=== PATIENT | female | born 1975 | race African-American/Black ===

== ENCOUNTER 2019-07-20 16:25 | Emergency (ER) | payer SELFPAY ==
[2019-07-20 16:37] VITALS: BMI 29.0
--- NOTE | 2019-07-20 16:38 | PDOC ---
Rapid Medical Evaluation Chief Complaint: Pain Time Seen by Provider: 07/20/19 16:33 Medical Evaluation: 07/20/19 16:37 Patient presents to ED with complaints of:llq cramping now radiating to back, states had frequent urge to defecate but denies diarrhea or constipation patient on brief exam: vss, no cva tenderness mild llq /left suprapubic tenderness Patient ordered for: labs, urine Patient to proceed to the ED Discharge Disposition - Diagnosis Abdominal pain, Right ovarian cyst, Fibroid uterus - Discharge Dispostion Disposition: HOME Condition at time of disposition: Stable - Referrals Referrals: Karla Kurtz MD [Staff Physician] - Luzma Andrade MD [Staff Physician] - Rhys Khan MD [Staff Physician] - Perry Steel MD [Staff Physician] - Alton Kovacs MD [Staff Physician] - - Patient Instructions Printed Discharge Instructions: DI for Uterine Fibroids, DI for Ovarian Cyst Additional Instructions: Please take ibuprofen as needed for pain as discussed. Please call the SCREEN PRINTER HELPER office first thing in the morning to arrange follow-up. Please return to the ED if you develop acute worsening pain the Right lower pelvis. Please call your PMD to arrange follow up. Please return to the ED with any further concerns or complaints. - Post Discharge Activity Work/School Note: Back to Work
[2019-07-20 17:10] LABS: BASO % 0.6 % (0-2.0); EOS % 1.3 % (0-4.5); HEMATOCRIT 34.3 % (32.4-45.2); HEMOGLOBIN 11.1 GM/dL (10.7-15.3); LYMPH % 33.8 % (8-40); MCH 29.2 pg (25.7-33.7); MCHC 32.3 g/dl (32.0-36.0); MEAN CELL VOLUME 90.4 fl (80-96); MONO % 8.4 % (3.8-10.2); NEUT % 55.9 % (42.8-82.8); PLATELET COUNT 288 K/MM3 (134-434); RBC 3.79 M/mm3 (3.60-5.2); RDW 14.6 % (11.6-15.6); WHITE BLOOD COUNT 7.9 K/mm3 (4.0-10.0)
[2019-07-20 17:25] LABS: EPI CELLS 1.8 /HPF (0-5/HPF); HYALINE CASTS 2 /lpf (0-8); URINE APPEARANCE CLEAR; URINE BACTERIA 16.8 /hpf (NEGATIVE); URINE BILIRUBIN NEGATIVE (NEGATIVE); URINE COLOR YELLOW; URINE GLUCOSE (UA) NEGATIVE (NEGATIVE); URINE KETONE NEGATIVE (NEGATIVE); URINE LEUK ESTERASE NEGATIVE (NEGATIVE); URINE NITRITE NEGATIVE (NEGATIVE); URINE PROTEIN NEGATIVE (NEGATIVE); URINE UROBILINOGEN 0.2 mg/dL (0.2-1.0); URINE WBC 0 /hpf (0-5)
[2019-07-20 17:33] LABS: ALBUMIN 3.6 g/dl (3.4-5.0); BILIRUBIN,TOTAL 0.2 mg/dL (0.2-1); BLOOD UREA NITROGEN 10.2 mg/dL (7-18); CALCIUM 8.9 mg/dL (8.5-10.1); TOT PROT 7.4 g/dl (6.4-8.2)
[2019-07-20 17:48] LABS: URINE RBC 8.2 /hpf (0-4)
[2019-07-20 17:49] LABS: YEAST NONE SEEN (NEGATIVE)
--- NOTE | 2019-07-20 18:01 | PDOC ---
History of Present Illness - General Chief Complaint: Pain Stated Complaint: ABD PAIN Time Seen by Provider: 07/20/19 16:33 History Source: Patient Exam Limitations: No Limitations - History of Present Illness Initial Comments: 44 year old female with PMH ovarian cyst (s/p removal) presented to ED for suprapubic pain x3 days, now radiating around to her right flank/back today. Pt denied nausea, vomiting, diarrhea, fever, vaginal bleeding, vaginal discharge, lightheadedness, chest pain, shortness of breath. Pt reported her symptoms are worsening. Pt reported pain is constant, cramping, no alleviating or aggravating factors, radiating around right ted/back. Social history: denied hx of STD, denied sexual activity (x2 years) Surgical history: removal of L ovarian cyst OBGYN: pt does not remember name, "Someone on [address]" ROS General: denied fever, chills, generalized weakness, body aches. HEENT: denied sore throat, rhinorrhea, ear pain. Cardiovascular: denied chest pain, palpitations, syncope, diaphoresis. Respiratory: denied shortness of breath, cough, sputum production, hemoptysis. Gastrointestinal: denied abdominal pain, nausea, vomiting, diarrhea, constipation, blood in stool. Genitourinary: denied vaginal bleeding, vaginal discharge, dysuria, increased urinary frequency, hematuria, urinary incontinence, flank pain. Back: admitted to back pain. Musculoskeletal: denied joint pain, muscle pain, joint swelling. Neurological: denied headache, dizziness, numbness, tingling, weakness. Integumentary: denied rash, laceration, abrasion. Hematologic/Lymphatic: denied bruising or bleeding. PE Constitutional: Well-nourished, Well-developed, appearing stated age. HEENT: head is normocephalic, atraumatic. EOMI. PERRLA. no facial edema. Neck: supple. Full ROM. Cardiovascular: regular heart rhythm. no murmurs. no pericardial friction rub. Respiratory: bibasilar fine crackles. no wheezing. no stridor. no labored breathing. speaking full sentences. Gastrointestinal: soft, nontender. mcburney nontender. rovsing negative. psoas negative. obturator negative. normal bowel sounds. no rebound, guarding, masses. Extremities: peripheral pulses intact. no lower extremity edema. Neurological: CN 2-12 grossly intact. 5/5 strength all extremities. Full sensation throughout. no ataxia. Psych: awake, alert, oriented to person and place. follows commands. answers questions appropriately. Pelvic: normal external genitalia. no CMT. green/yellow discharge noted. no adnexal tenderness bilaterally. Past History - Past Medical History Allergies/Adverse Reactions: Allergies Allergy/AdvReac Type Severity Reaction Status Date / Time Penicillins Allergy Verified 07/20/19 16:37 Home Medications: Ambulatory Orders NK [No Known Home Medication] 07/20/19 COPD: No - Suicide/Smoking/Psychosocial Hx Smoking History: Never smoked Information on smoking cessation initiated: No Hx Alcohol Use: No Drug/Substance Use Hx: No *Physical Exam - Vital Signs Last Vital Signs Temp Pulse Resp BP Pulse Ox 98.1 F 63 19 133/88 100 07/20/19 16:34 07/20/19 16:34 07/20/19 16:34 07/20/19 16:34 07/20/19 16:34 ED Treatment Course - LABORATORY CBC & Chemistry Diagram: 07/20/19 16:48 07/20/19 16:48 - ADDITIONAL ORDERS Additional order review: Laboratory Results 07/20/19 07/20/19 07/20/19 16:48 16:48 16:48 Sodium 140 Potassium 4.0 Chloride 108 H Carbon Dioxide 27 Anion Gap 6 L BUN 10.2 Creatinine 1.0 Est GFR (CKD-EPI)AfAm 78.79 Est GFR (CKD-EPI)NonAf 67.98 Random Glucose 79 Calcium 8.9 Total Bilirubin 0.2 AST 14 L ALT 17 Alkaline Phosphatase 63 Total Protein 7.4 Albumin 3.6 Urine Color Yellow Urine Appearance Clear Urine pH 8.0 Ur Specific Mobile 1.015 Urine Protein Negative Urine Glucose (UA) Negative Urine Ketones Negative Urine Blood 1+ H Urine Nitrite Negative Urine Bilirubin Negative Urine Urobilinogen 0.2 Ur Leukocyte Esterase Negative Urine WBC (Auto) 0 Urine RBC (Auto) 8.2 Urine Casts (Auto) 2 U Epithel Cells (Auto) 1.8 Urine Bacteria (Auto) 16.8 Urine Yeast (Auto) None seen Urine HCG, Qual Negative 07/20/19 16:48 RBC 3.79 MCV 90.4 MCHC 32.3 RDW 14.6 MPV 8.0 Neutrophils % 55.9 Lymphocytes % 33.8 Monocytes % 8.4 Eosinophils % 1.3 Basophils % 0.6 - RADIOLOGY Radiology Studies Ordered: Category Date Time Status TRANSVAGINAL ULTRASOUND US [US] Stat Ultrasound 07/20/19 17:59 Ordered Medical Decision Making - Medical Decision Making 44 year old female with above PMH presented to ED for suprapubic pain x3 days, now radiating to her right flank/back. Initial Vital Signs Temp Pulse Resp BP Pulse Ox 98.1 F 63 19 133/88 100 07/20/19 16:34 07/20/19 16:34 07/20/19 16:34 07/20/19 16:34 07/20/19 16:34 Afebrile. No tachycardia. No tachypnea. Mild hypertension. No hypoxia on room air. CBC WBC 7.9 K/mm3 (4.0-10.0) 07/20/19 16:48 RBC 3.79 M/mm3 (3.60-5.2) 07/20/19 16:48 Hgb 11.1 GM/dL (10.7-15.3) 07/20/19 16:48 Hct 34.3 % (32.4-45.2) 07/20/19 16:48 MCV 90.4 fl (80-96) 07/20/19 16:48 MCH 29.2 pg (25.7-33.7) 07/20/19 16:48 MCHC 32.3 g/dl (32.0-36.0) 07/20/19 16:48 RDW 14.6 % (11.6-15.6) 07/20/19 16:48 Plt Count 288 K/MM3 (134-434) 07/20/19 16:48 MPV 8.0 fl (7.5-11.1) 07/20/19 16:48 Absolute Neuts (auto) 4.4 K/mm3 (1.5-8.0) 07/20/19 16:48 Neutrophils % 55.9 % (42.8-82.8) 07/20/19 16:48 Lymphocytes % 33.8 % (8-40) 07/20/19 16:48 Monocytes % 8.4 % (3.8-10.2) 07/20/19 16:48 Eosinophils % 1.3 % (0-4.5) 07/20/19 16:48 Basophils % 0.6 % (0-2.0) 07/20/19 16:48 Nucleated RBC % 0 % (0-0) 07/20/19 16:48 No leukocytosis. No anemia. CMP Sodium 140 mmol/L (136-145) 07/20/19 16:48 Potassium 4.0 mmol/L (3.5-5.1) 07/20/19 16:48 Chloride 108 mmol/L (98-107) H 07/20/19 16:48 Carbon Dioxide 27 mmol/L (21-32) 07/20/19 16:48 Anion Gap 6 MMOL/L (8-16) L 07/20/19 16:48 BUN 10.2 mg/dL (7-18) 07/20/19 16:48 Creatinine 1.0 mg/dL (0.55-1.3) 07/20/19 16:48 Est GFR (CKD-EPI)AfAm 78.79 07/20/19 16:48 Est GFR (CKD-EPI)NonAf 67.98 07/20/19 16:48 Random Glucose 79 mg/dL (74-106) 07/20/19 16:48 Calcium 8.9 mg/dL (8.5-10.1) 07/20/19 16:48 Total Bilirubin 0.2 mg/dL (0.2-1) 07/20/19 16:48 AST 14 U/L (15-37) L 07/20/19 16:48 ALT 17 U/L (13-61) 07/20/19 16:48 Alkaline Phosphatase 63 U/L (45-117) 07/20/19 16:48 Total Protein 7.4 g/dl (6.4-8.2) 07/20/19 16:48 Albumin 3.6 g/dl (3.4-5.0) 07/20/19 16:48 No electrolyte abnormalities. No NATALY. No transaminitis. Urine Test Results Urine Color Yellow 07/20/19 16:48 Urine Appearance Clear 07/20/19 16:48 Urine pH 8.0 (5.0-8.0) 07/20/19 16:48 Ur Specific Mobile 1.015 (1.010-1.035) 07/20/19 16:48 Urine Protein Negative (NEGATIVE) 07/20/19 16:48 Urine Glucose (UA) Negative (NEGATIVE) 07/20/19 16:48 Urine Ketones Negative (NEGATIVE) 07/20/19 16:48 Urine Blood 1+ (NEGATIVE) H 07/20/19 16:48 Urine Nitrite Negative (NEGATIVE) 07/20/19 16:48 Urine Bilirubin Negative (NEGATIVE) 07/20/19 16:48 Ur Leukocyte Esterase Negative (NEGATIVE) 07/20/19 16:48 Negative for UTI. Positive for hematuria. GC/Chlamydia cervical swab sent. Pt declined prophylactic treatment - reported last sexually active x2 years ago , but reported has not been tested since abstinence. 07/20/19 19:01 Dr. Rush will assume care. Pending [facility] report. 07/21/19 17:01 Follow up: [facility] report: Name: [facility] DEPARTMENT OF RADIOLOGY Phys: Taylor Turner RESIDENT : 1975 Age: 44 Sex: F [facility] Acct: [id number] Loc: [address] Exam Date: 07/20/19 Status: ENEIDA Guzman [id number] Unit Number: [id number] EXAM#: TYPE/EXAM: RESULT: [id number] US/TRANSVAGINAL ULTRASOUND US HISTORY PROVIDED: Suprapubic. Real time examination of the pelvis utilizing the transvaginal probe demonstrates the following: The uterus is normal in size measuring 9.8 x 6.0 x 4.9 cm. There is a solid uterine mass consistent with a leiomyoma. This fibroid measures 3.5 x 3.4 x 3.1 cm. A normal appearing endometrium of 8 mm thickness is identified. There is a complex cyst within the right ovary measuring 6.4 x 6.0 x 4.7 cm. This cyst is most probably hemorrhagic in nature. Arterial and venous flow is documented to the ovary. The left ovary could not be identified. There is no evidence of adnexal masses or free pelvic fluid collections. IMPRESSION: Fibroid uterus and complex right ovarian cyst. Reported By: Christopher Rudolph MD 07/20/191942 *DC/Admit/Observation/Transfer Diagnosis at time of Disposition: Abdominal pain, Right ovarian cyst, Fibroid uterus - Discharge Dispostion Disposition: HOME Condition at time of disposition: Stable - Referrals Referrals: Karla Kurtz MD [Staff Physician] - Luzma Andrade MD [Staff Physician] - Rhys Khan MD [Staff Physician] - Perry Steel MD [Staff Physician] - Alton Kovacs MD [Staff Physician] - - Patient Instructions Printed Discharge Instructions: DI for Uterine Fibroids, DI for Ovarian Cyst Additional Instructions: Please take ibuprofen as needed for pain as discussed. Please call the SUBSCRIPTION CLERK office first thing in the morning to arrange follow-up. Please return to the ED if you develop acute worsening pain the Right lower pelvis. Please call your PMD to arrange follow up. Please return to the ED with any further concerns or complaints. - Post Discharge Activity Forms/Work/School Notes: Back to Work
[2019-07-20] MEDS ORDERED: IBUPROFEN 600 MG TABLET (FP) PO ONE ×2 (18:24→18:31)
--- NOTE | 2019-07-20 18:24 | PDOC ---
Documentation entered by Gerald Roland SCRIBE, acting as scribe for Anais Rush DO. Anais Rush DO: This documentation has been prepared by the Luan russell Daniel, SCRIBE, under my direction and personally reviewed by me in its entirety. I confirm that the documentation accurately reflects all work, treatment, procedures, and medical decision making performed by me. Attending Attestation - Resident Resident Name: Taylor Turner - ED Attending Attestation I have performed the following: I have examined & evaluated the patient, The case was reviewed & discussed with the resident, I agree w/resident's findings & plan, Exceptions are as noted - HPI HPI: 07/20/19 18:14 The patient is a 44 year old female with a past medical history of ovarian cyst s/p removal here today for evaluation of suprapubic pain. The patient reports that she has had 3 days of suprapubic pain which is now radiating to her right flank and back. She describes her pain as crampy. Patient denies headache, lightheadedness. Denies fever, chills. Denies chest pain, shortness of breath. Denies nausea, vomiting, diarrhea. Denies any vaginal bleeding or discharge. Allergies: penicillins - Physicial Exam PE: 07/20/19 18:17 Constitutional: Awake, alert, oriented. No acute distress. Head: Normocephalic. Atraumatic Eyes: PERRL. EOMI. Conjunctivae are not pale. ENT: Mucous membranes are moist and intact. Posterior pharynx without exudates or erythema. Uvula midline. Neck: Supple. Full ROM. No lymphadenopathy. Cardiovascular: Regular rate. Regular rhythm. S1, S2 regular. Distal pulses are 2+ and symmetric. Pulmonary/Chest: No evidence of respiratory distress. Clear to auscultation bilaterally No wheezing, rales or rhonchi. Abdominal: +mild tenderness of right mcburney's point. Soft and non-distended. No rebound, guarding or rigidity. No organomegaly. No palpable masses. Good bowel sounds. Back: No CVA tenderness. Musculoskeletal: No edema. No cyanosis. No clubbing. Full range of motion in all extremities. No calf tenderness. Radial/pedal pulses are intact and 2+ bilaterally Skin: Skin is warm and dry. No petechiae. No purpura. Neurological: Alert and oriented to person, place, and time. Cranial nerves II -XII are grossly intact. Normal speech. Strength is grossly symmetric. No sensory deficits. Psychiatric: Good eye contact. Normal interaction, affect and behavior. - Medical Decision Making 07/20/19 18:22 I, Dr. Anais Rush, DO, attest that this document has been prepared under my direction and personally reviewed by me in its entirety. I further attest, that it accurately reflects all work, treatment, procedures and medical decision -making performed by me. 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 at [facility] pending official ultrasound read 07/20/19 19:50 fibroid uterus and flow to the ovary 07/20/19 20:09 discussed ultrasound images and report in detail answered all questions pt requesting work note to see dermatologist and dermatopathologist tomorrow pt requesting other referrals to see dermatologist and dermatopathologist closer to the area vs [facility] landscape account manager *DC/Admit/Observation/Transfer Diagnosis at time of Disposition: Abdominal pain, Right ovarian cyst, Fibroid uterus - Discharge Dispostion Disposition: HOME Condition at time of disposition: Stable Decision to Admit order: No - Referrals Referrals: Luzma Andrade MD [Staff Physician] - Rhys Khan MD [Staff Physician] - Karla Kurtz MD [Staff Physician] - Perry Steel MD [Staff Physician] - Alton Kovacs MD [Staff Physician] - - Patient Instructions Printed Discharge Instructions: DI for Ovarian Cyst, DI for Uterine Fibroids Additional Instructions: Please take ibuprofen as needed for pain as discussed. Please call the WET PROCESS MILLER HEAD ASSISTANT office first thing in the morning to arrange follow-up. Please return to the ED if you develop acute worsening pain the Right lower pelvis. Please call your PMD to arrange follow up. Please return to the ED with any further concerns or complaints. - Post Discharge Activity Forms/Work/School Notes: Back to Work
[2019-07-20 20:14] VITALS: BP 136/78; PULSE 68; TEMP 98.2
== END 2019-07-20 20:28 | disposition home or self-care (01) ==
LOC: JER 16:25
DX: N83.201 Unspecified ovarian cyst, right side (principal); D25.9 Leiomyoma of uterus, unspecified
CPT/HCPCS: 36415; 76830-TC; 80053; 81003; 84703; 85025; 87086; 87491; 87591; 99282-25

== ENCOUNTER 2019-07-26 16:45 | Emergency (ER) | payer SELFPAY ==
--- NOTE | 2019-07-26 16:47 | PDOC ---
Rapid Medical Evaluation Chief Complaint: Vaginal Bleeding Time Seen by Provider: 07/26/19 16:46 Medical Evaluation: Allergies Allergy/AdvReac Type Severity Reaction Status Date / Time Penicillins Allergy Verified 07/20/19 16:37 07/26/19 16:46 HPI: Lower abdominal pain and vaginal bleeding x1 week PE: No gross deficits ORDERS: Labs Discharge Disposition - Diagnosis Vaginal bleeding - Referrals - Patient Instructions - Post Discharge Activity
[2019-07-26 16:49] VITALS: BMI 28.1
[2019-07-26 17:33] LABS: BASO % 0.9 % (0-2.0); EOS % 1.2 % (0-4.5); HEMATOCRIT 33.9 % (32.4-45.2); HEMOGLOBIN 11.1 GM/dL (10.7-15.3); LYMPH % 24.9 % (8-40); MCH 29.7 pg (25.7-33.7); MCHC 32.9 g/dl (32.0-36.0); MEAN CELL VOLUME 90.4 fl (80-96); MONO % 7.1 % (3.8-10.2); NEUT % 65.9 % (42.8-82.8); PLATELET COUNT 302 K/MM3 (134-434); RBC 3.75 M/mm3 (3.60-5.2); WHITE BLOOD COUNT 8.4 K/mm3 (4.0-10.0)
[2019-07-26 17:46] LABS: INR 1.03 (0.83-1.09); PROTHROMBIN TIME (PATIENT) 12.1 SEC (9.7-13.0)
--- NOTE | 2019-07-26 18:37 | PDOC ---
History of Present Illness - General History Source: Patient Exam Limitations: No Limitations <Ana M Love - Last Filed: 07/26/19 20:44> <Linsey Grossman Nasim - Last Filed: 07/28/19 10:13> - General Chief Complaint: Vaginal Bleeding Stated Complaint: VAGINAL BLEEDING Time Seen by Provider: 07/26/19 16:46 Past History - Travel Traveled outside of the country in the last 30 days: No Close contact w/someone who was outside of country & ill: No - Past Medical History COPD: No - Psycho Social/Smoking Cessation Hx Smoking History: Never smoked Hx Alcohol Use: No Drug/Substance Use Hx: No <Rosario Loveecca - Last Filed: 07/26/19 20:44> <GrossmanLinsey Nasim - Last Filed: 07/28/19 10:13> - Past Medical History Allergies/Adverse Reactions: Allergies Allergy/AdvReac Type Severity Reaction Status Date / Time Penicillins Allergy Verified 07/26/19 16:49 Home Medications: Ambulatory Orders Ibuprofen 800 mg PO QID PRN #20 tablet 07/26/19 Review of Systems - Review of Systems Able to Perform ROS?: Yes Comments:: 07/26/19 20:44 CONSTITUTIONAL: Absent: fever, chills, diaphoresis, generalized weakness, malaise, loss of appetite HEENT: Absent: rhinorrhea, nasal congestion, throat pain, throat swelling, difficulty swallowing, mouth swelling, ear pain, eye pain, visual Changes CARDIOVASCULAR: Absent: chest pain, loss of consciousness, palpitations, irregular heart rate, peripheral edema RESPIRATORY: Absent: cough, shortness of breath, dyspnea with exertion, orthopnea, wheezing, stridor, hemoptysis GASTROINTESTINAL: Absent: abdominal pain, abdominal distension, nausea, vomiting, diarrhea, constipation, melena, hematochezia GENITOURINARY: Present: cramping, vaginal bleeding. Absent: dysuria, frequency, urgency, hesitancy, hematuria, flank pain, genital pain MUSCULOSKELETAL: Absent: myalgia, arthralgia, joint swelling SKIN: Absent: rash, itching, pallor HEMATOLOGIC/IMMUNOLOGIC: Absent: easy bleeding, easy bruising, lymphadenopathy, frequent infections ENDOCRINE: Absent: unexplained weight gain, unexplained weight loss, heat intolerance, cold intolerance NEUROLOGIC: Absent: headache, focal weakness or paresthesias, dizziness, unsteady gait, seizure, mental status changes, bladder or bowel incontinence PSYCHIATRIC: Absent: anxiety, depression, suicidal or homicidal ideation, hallucinations. Is the patient limited Cymro proficient: No <Ana M Love - Last Filed: 07/26/19 20:44> *Physical Exam - Vital Signs Last Vital Signs Temp Pulse Resp BP Pulse Ox 98 F 84 18 135/71 99 07/26/19 16:46 07/26/19 16:46 07/26/19 16:46 07/26/19 16:46 07/26/19 16:46 - Physical Exam Comments: 07/26/19 20:47 GENERAL: Well developed, well nourished. Awake and alert. No acute distress. HEENT: Normocephalic, atraumatic. PERRLA, EOMI. No conjunctival pallor. Sclera are non- icteric. Moist mucous membranes. Oropharynx is clear. NECK: Supple. Full ROM. No JVD. Carotid pulses 2+ and symmetric, without bruits. No thyromegaly. No lymphadenopathy. CARDIOVASCULAR: Regular rate and rhythm. No murmurs, rubs, or gallops. Distal pulses are 2+ and symmetric. PULMONARY: No evidence of respiratory distress. Lungs clear to auscultation bilaterally. No wheezing, rales or rhonchi. ABDOMINAL: TTP of the R adenexa, suprapubic region. Soft. Non-distended. No rebound or guarding. No organomegaly. Normoactive bowel sounds. MUSCULOSKELETAL Normal range of motion at all joints. No bony deformities or tenderness. No CVA tenderness. EXTREMITIES: No cyanosis. No clubbing. No edema. No calf tenderness. SKIN: Warm and dry. Normal capillary refill. No rashes. No jaundice. NEUROLOGICAL: Alert, awake, appropriate. Cranial nerves 2-12 intact. No deficits to light touch and temperature in face, upper extremities and lower extremities. No motor deficits in the in face, upper extremities and lower extremities. Normoreflexic in the upper and lower extremities. Normal speech. Toes are down- going bilaterally. Gait is normal without ataxia. PSYCHIATRIC: Cooperative. Good eye contact. Appropriate mood and affect. <Ana M Love - Last Filed: 07/26/19 20:44> - Vital Signs Last Vital Signs Temp Pulse Resp BP Pulse Ox 98.2 F 75 20 116/78 100 07/26/19 21:43 07/26/19 21:43 07/26/19 21:43 07/26/19 21:43 07/26/19 21:43 <Linsey Grossman - Last Filed: 07/28/19 10:13> ED Treatment Course - LABORATORY CBC & Chemistry Diagram: 07/26/19 17:17 - ADDITIONAL ORDERS Additional order review: Laboratory Results 07/26/19 17:17 PT with INR 12.10 INR 1.03 07/26/19 17:17 RBC 3.75 MCV 90.4 MCHC 32.9 RDW 15.0 MPV 8.0 Neutrophils % 65.9 Lymphocytes % 24.9 D Monocytes % 7.1 Eosinophils % 1.2 Basophils % 0.9 - RADIOLOGY Radiology Studies Ordered: Category Date Time Status TRANSVAGINAL ULTRASOUND US [US] Stat Ultrasound 07/26/19 17:20 Ordered <Ana M Love - Last Filed: 07/26/19 20:44> - LABORATORY CBC & Chemistry Diagram: 07/26/19 17:17 - ADDITIONAL ORDERS Additional order review: Laboratory Results 07/26/19 19:00 Urine Color Cancelled Urine Appearance Cancelled Urine pH Cancelled Ur Specific [place] Cancelled Urine Protein Cancelled Urine Glucose (UA) Cancelled Urine Ketones Cancelled Urine Blood Cancelled Urine Nitrite Cancelled Urine Bilirubin Cancelled Urine Urobilinogen Cancelled Ur Leukocyte Esterase Cancelled Urine WBC (Auto) Cancelled Urine RBC (Auto) Cancelled Urine Casts (Auto) Cancelled U Pathogenic Cast Auto Cancelled U Epithel Cells (Auto) Cancelled U Sm Round Cell (Auto) Cancelled Urine Crystals (Auto) Cancelled Urine Bacteria (Auto) Cancelled Urine Yeast (Auto) Cancelled 07/26/19 17:17 RBC 3.75 MCV 90.4 MCHC 32.9 RDW 15.0 MPV 8.0 Neutrophils % 65.9 Lymphocytes % 24.9 D Monocytes % 7.1 Eosinophils % 1.2 Basophils % 0.9 - Medications Given in the ED: ED Medications Discontinued Medications Generic Name Dose Route Start Last Admin Trade Name Freq PRN Reason Stop Dose Admin Ibuprofen 600 mg 07/26/19 18:55 07/26/19 19:40 Motrin - PO 07/26/19 18:56 Not Given ONCE ONE Ketorolac Tromethamine 30 mg 07/26/19 19:35 07/26/19 19:59 Toradol Injection - IVPUSH 07/26/19 19:36 30 mg ONCE ONE Administration <Linsey Grossman - Last Filed: 07/28/19 10:13> Medical Decision Making - Medical Decision Making 07/26/19 20:50 The patient is a 44 y/o F who presents to the ER for vaginal bleeding and abdominal cramping. The patient states that she was seen the ER about one week ago for similar symtpoms. She was told that she had a cyst and fibroma. She was given [employer] follow up, but d/t and insurance issue she was unable to follow up. She states she has been taking Tylenol and Motrin at home with some relief of her symptoms. she states she is returning to the ER because her pain is increased. Denies fevers, chills, nausea, vomiting, diarrhea. She states her last menstrual cycle was 2 weeks ago, and this bleeding is breakthrough bleeding. A/P: Vaginal bleeding On exam patient with right adnexal tenderness on the abdomen. No right lower quadrant tenderness. Mild suprapubic discomfort Patient defers vaginal exam at this time due to pain Motrin ordered Basic labs ordered from E Transvaginal ultrasound added on. Rule out torsion or worsening cyst at this time. Signout given to SUZANNE Sampson pending labs and ultrasound. <Ana M Love - Last Filed: 07/26/19 20:44> - Medical Decision Making 07/28/19 10:12 The patient was seen and evaluated in conjunction with midlevel provider under my direct supervision, ancillary studies were reviewed. I agree with the plan as outlined BESSIE Love. HPI, workup/dispo as outlined. VS reviewed, wnl. imaging with right ovarian cyst, fibroid noted. otherwise labs wnl. [employer] followup, anticipate discharge, pcp followup, return precautions 07/28/19 10:12 <Linsey Grossman - Last Filed: 07/28/19 10:13> *DC/Admit/Observation/Transfer <Ana M Love - Last Filed: 07/26/19 20:44> <Linsey Grossman - Last Filed: 07/28/19 10:13> Diagnosis at time of Disposition: Vaginal bleeding, Right ovarian cyst - Discharge Dispostion Disposition: HOME Condition at time of disposition: Improved - Prescriptions Prescriptions: Ibuprofen 800 mg PO QID PRN #20 tablet PRN Reason: Pain - Referrals Referrals: Perry Steel MD [Staff Physician] - Call tomorrow - Patient Instructions Printed Discharge Instructions: DI for Vaginal Bleeding Additional Instructions: return to the ER if you are soaking 2 pads per hour, severe abdominal pain, or worsening symptoms. please follow up with a [employer]er for any worsening symptoms - Post Discharge Activity Forms/Work/School Notes: Back to Work Discharge <Ana M Love - Last Filed: 07/26/19 20:44> - Discharge Information Problems reviewed: Yes <Linsey Grossman - Last Filed: 07/28/19 10:13> - Discharge Information Clinical Impression/Diagnosis: Vaginal bleeding, Right ovarian cyst Condition: Improved Disposition: HOME - Additional Discharge Information Prescriptions: Ibuprofen 800 mg PO QID PRN #20 tablet PRN Reason: Pain - Follow up/Referral Referrals: Perry Steel MD [Staff Physician] - Call tomorrow - Patient Discharge Instructions Patient Printed Discharge Instructions: DI for Vaginal Bleeding Additional Instructions: return to the ER if you are soaking 2 pads per hour, severe abdominal pain, or worsening symptoms. please follow up with a [employer]er for any worsening symptoms - Post Discharge Activity Work/Back to School Note: Back to Work
[2019-07-26] MEDS ORDERED: IBUPROFEN 600 MG TABLET (FP) PO ONE ×2 (18:55→19:37)
--- NOTE | 2019-07-26 19:34 | PDOC ---
*Physical Exam - Vital Signs Last Vital Signs Temp Pulse Resp BP Pulse Ox 98 F 84 18 135/71 99 07/26/19 16:46 07/26/19 16:46 07/26/19 16:46 07/26/19 16:46 07/26/19 16:46 ED Treatment Course - LABORATORY CBC & Chemistry Diagram: 07/26/19 17:17 - ADDITIONAL ORDERS Additional order review: Laboratory Results 07/26/19 17:17 PT with INR 12.10 INR 1.03 07/26/19 17:17 RBC 3.75 MCV 90.4 MCHC 32.9 RDW 15.0 MPV 8.0 Neutrophils % 65.9 Lymphocytes % 24.9 D Monocytes % 7.1 Eosinophils % 1.2 Basophils % 0.9 Medical Decision Making - Medical Decision Making 07/26/19 21:31 right ovarian complex cyst . no torsion. advised to have close follow up with physician locums urgent care. strict return precautions reviewed with patient 07/26/19 21:31 *DC/Admit/Observation/Transfer Diagnosis at time of Disposition: Vaginal bleeding, Right ovarian cyst - Discharge Dispostion Disposition: HOME - Prescriptions Prescriptions: Ibuprofen 800 mg PO QID PRN #20 tablet PRN Reason: Pain - Referrals Referrals: Perry Steel MD [Staff Physician] - Call tomorrow - Patient Instructions Printed Discharge Instructions: DI for Vaginal Bleeding Additional Instructions: return to the ER if you are soaking 2 pads per hour, severe abdominal pain, or worsening symptoms. please follow up with a [employer] for any worsening symptoms - Post Discharge Activity Forms/Work/School Notes: Back to Work
[2019-07-26] MEDS ORDERED: KETOROLAC TROMETHAMINE 30 MG/1 ML VIAL IVPUSH ONE (19:35)
[2019-07-26] MEDS ORDERED: KETOROLAC TROMETHAMINE 30 MG/1 ML VIAL ONE (19:41)
[2019-07-26 21:19] LABS: EPI CELLS 5.1 /HPF (0-5/HPF); HYALINE CASTS 3 /lpf (0-8); PH,URINE 6.5 (5.0-8.0); URINE APPEARANCE CLOUDY; URINE BACTERIA 21.5 /hpf (NEGATIVE); URINE BILIRUBIN NEGATIVE (NEGATIVE); URINE COLOR ORANGE; URINE GLUCOSE (UA) NEGATIVE (NEGATIVE); URINE KETONE NEGATIVE (NEGATIVE); URINE LEUK ESTERASE NEGATIVE (NEGATIVE); URINE NITRITE NEGATIVE (NEGATIVE); URINE PROTEIN 1+ (NEGATIVE); URINE RBC 182 /hpf (0-4); URINE UROBILINOGEN 0.2 mg/dL (0.2-1.0); URINE WBC 2 /hpf (0-5)
[2019-07-26 21:49] VITALS: BP 116/78; PULSE 75; TEMP 98.2
== END 2019-07-26 21:48 | disposition home or self-care (01) ==
LOC: JER 16:45
PROC: 3E0333Z Introduction of Anti-inflammatory into Peripheral Vein, Percutaneous Approach (ICD-10-PCS; principal; 2019-07-26)
DX: N83.201 Unspecified ovarian cyst, right side (principal); N93.8 Other specified abnormal uterine and vaginal bleeding; Z88.0 Allergy status to penicillin
CPT/HCPCS: 36415; 76830-TC; 81003; 84703; 85025; 85610; 86850; 86900; 86901; 99283-25

== ENCOUNTER 2021-05-15 19:12 | Emergency (ER) | payer OTHER ==
[2021-05-15 19:18] VITALS: BP 147/95; PULSE 77; TEMP 98.4; BMI 31.1
[2021-05-15 21:29] LABS: HCG,QUALITATIVE URINE Negative
[2021-05-15] MEDS ORDERED: KETOROLAC TROMETHAMINE 60 MG/2 ML VIAL IM ONE (21:29)
[2021-05-15] MEDS ORDERED: KETOROLAC TROMETHAMINE 60 MG/2 ML VIAL ONE (21:44)
[2021-05-15 22:15] LABS: EPI CELLS 5 /uL (0-25.1); HYALINE CASTS 0 /uL (0-3.1); URINE APPEARANCE CLEAR; URINE BACTERIA 125 /uL (0-1359); URINE BILIRUBIN NEGATIVE (NEGATIVE); URINE COLOR YELLOW; URINE GLUCOSE (UA) NEGATIVE (NEGATIVE); URINE KETONE NEGATIVE (NEGATIVE); URINE LEUK ESTERASE NEGATIVE (NEGATIVE); URINE NITRITE NEGATIVE (NEGATIVE); URINE PROTEIN NEGATIVE (NEGATIVE); URINE RBC 42 /uL (0-23.9); URINE UROBILINOGEN 0.2 mg/dL (0.2-1.0); URINE WBC 3 /uL (0-25.8)
== END 2021-05-15 22:21 | disposition home or self-care (01) ==
LOC: JER 19:12
PROC: 3E0233Z Introduction of Anti-inflammatory into Muscle, Percutaneous Approach (ICD-10-PCS; principal; 2021-05-15)
DX: R10.2 Pelvic and perineal pain (principal)
CPT/HCPCS: 81003; 84703; 87086; 87186; 99284-25

== ENCOUNTER 2021-06-02 18:43 | Emergency (ER) | payer OTHER ==
[2021-06-02 19:08] VITALS: BP 138/97; PULSE 68; TEMP 98.1; BMI 31.1
[2021-06-02] MEDS ORDERED: IBUPROFEN 400 MG TABLET (FP) PO ONE ×2 (20:48→21:35)
[2021-06-02] MEDS ORDERED: LACTULOSE 20 GM/30 ML UDC (FOR ORAL USE ONLY) PO ONE (20:52)
[2021-06-02 20:53] LABS: EPI CELLS 1 /uL (0-25.1); HYALINE CASTS 0 /uL (0-3.1); PH,URINE 7.5 (5.0-8.0); URINE APPEARANCE CLEAR; URINE BACTERIA 23 /uL (0-1359); URINE BILIRUBIN NEGATIVE (NEGATIVE); URINE COLOR YELLOW; URINE GLUCOSE (UA) NEGATIVE (NEGATIVE); URINE KETONE NEGATIVE (NEGATIVE); URINE LEUK ESTERASE NEGATIVE (NEGATIVE); URINE NITRITE NEGATIVE (NEGATIVE); URINE PROTEIN NEGATIVE (NEGATIVE); URINE RBC 21 /uL (0-23.9); URINE UROBILINOGEN 0.2 mg/dL (0.2-1.0); URINE WBC 1 /uL (0-25.8)
[2021-06-02 20:54] LABS: HCG,QUALITATIVE URINE Negative
== END 2021-06-02 22:11 | disposition home or self-care (01) ==
LOC: JER 18:43
DX: D25.9 Leiomyoma of uterus, unspecified (principal); R14.1 Gas pain
CPT/HCPCS: 76830-TC; 81003; 84703; 87086; 99284-25

== ENCOUNTER 2023-04-19 22:42 | Emergency (ER) | payer OTHER ==
[2023-04-19 22:57] VITALS: TEMP 98.2; BMI 30.2
[2023-04-19] MEDS ORDERED: FAMOTIDINE 20 MG/50 ML IVPB 20 MG/50 ML MG IVPB ONE (23:07)
[2023-04-19] MEDS ORDERED: ACETAMINOPHEN 1000 MG/100 ML BAG IVPB ONE (23:07)
[2023-04-19] MEDS ORDERED: LACTATED RINGERS SOLUTION 1000 ML INFUS.BAG IV ONE (23:07)
[2023-04-19] MEDS ORDERED: ONDANSETRON 4 MG/2 ML VIAL IVPUSH ONE (23:07)
[2023-04-19] MEDS ORDERED: ACETAMINOPHEN INJECTION 100 ML IVPB ONE (23:23)
[2023-04-19] MEDS ORDERED: ONDANSETRON 4 MG/2 ML VIAL ONE (23:23)
[2023-04-19] MEDS ORDERED: FAMOTIDINE 10 MG/ML VIAL IVPB ONE (23:25)
[2023-04-19 23:53] LABS: BASO % 0.3 % (0-2.0); EOS % 0.4 % (0-4.5); HEMATOCRIT 36.3 % (32.4-45.2); HEMOGLOBIN 11.9 GM/dL (10.7-15.3); LYMPH % 16.5 % (8-40); MCHC 32.9 g/dl (32.0-36.0); MEAN CELL VOLUME 88.3 fl (80-96); MEAN PLT VOLUME 8.2 fl (7.5-11.1); MONO % 3.5 % (3.8-10.2); NEUT % 79.3 % (42.8-82.8); PLATELET COUNT 229 10^3/uL (134-434); RBC 4.11 M/mm3 (3.60-5.2); WHITE BLOOD COUNT 10.6 K/mm3 (4.0-10.0)
[2023-04-20 00:13] LABS: POTASSIUM 3.9 mmol/L (3.5-5.1)
[2023-04-20 00:16] LABS: ALBUMIN 3.4 g/dl (3.4-5.0); BLOOD UREA NITROGEN 9.1 mg/dL (7-18); MAGNESIUM 1.8 mg/dL (1.8-2.4)
[2023-04-20 00:19] LABS: CREATININE 0.9 mg/dL (0.55-1.3)
[2023-04-20 00:20] LABS: BILIRUBIN,TOTAL 0.4 mg/dL (0.2-1)
[2023-04-20] MEDS ORDERED: ONDANSETRON 4 MG/2 ML VIAL IVPUSH ONE (00:35)
[2023-04-20] MEDS ORDERED: ONDANSETRON 4 MG/2 ML VIAL ONE (00:44)
[2023-04-20 03:06] VITALS: BP 114/81; PULSE 68; RESP 16
== END 2023-04-20 03:42 | disposition home or self-care (01) ==
LOC: JER 22:42
PROC: 3E033GC Introduction of Other Therapeutic Substance into Peripheral Vein, Percutaneous Approach (ICD-10-PCS; principal; 2023-04-19)
PROC: 3E033NZ Introduction of Analgesics, Hypnotics, Sedatives into Peripheral Vein, Percutaneous Approach (ICD-10-PCS; 2023-04-19)
PROC: 3E033GC Introduction of Other Therapeutic Substance into Peripheral Vein, Percutaneous Approach (ICD-10-PCS; 2023-04-19)
PROC: 3E033GC Introduction of Other Therapeutic Substance into Peripheral Vein, Percutaneous Approach (ICD-10-PCS; 2023-04-20)
DX: R10.9 Unspecified abdominal pain (principal); R11.2 Nausea with vomiting, unspecified; R19.7 Diarrhea, unspecified; R53.1 Weakness
CPT/HCPCS: 36415; 74177-TC; 80053; 83605; 83690; 83735; 85025; 93005; 93010; 99285-25; Q9967